=== PATIENT | female | born 1955 | race Caucasian/White ===

== ENCOUNTER 2020-07-03 21:45 | Emergency (ER) | payer MEDICARE ==
[2020-07-03 23:42] LABS: Absolute Neutrophil Ct (ANC) 2.26 (1.4-6.9); Hematocrit 39.9 % (35-47); Hemoglobin 13.4 gm/dl (12.0-16.0); Mean Cell Volume 89.1 fl (78-100); Mean Corpuscular Hemoglobin 29.9 pg (26-32); Mean Corpuscular Hgb Concent. 33.6 g/dl (32-36); Mean Platelet Volume 10.8 fl (7.5-11.0); Platelet Count 134 K/mm3 (150-450); Red Blood Count 4.48 M/mm3 (4.1-5.4); Red Cell Distribution Width 14.2 % (11.5-14.0); White Blood Count 3.8 K/mm3 (4.0-10.5)
--- NOTE | 2020-07-03 23:57 | ERPHSYRPT ---
- History of Present Illness Source: patient Patient Subjective Stated Complaint: cough, shortness of breath, hot flashes, chills, dizziness Triage Nursing Assessment: pt c/o cough, which at times causes shortness of breath, hot flashes, chills, dizziness, body aches and fatigue. Pt saw Dr. Rosie Foss 2 weeks ago, dx with bronchitis, had steroid shot and given cipro x5 days which she completed. Covid test done at that time and was negtive. Lungs clear. Physician History: 65 yo wf w nonproductive cough x3wks. Pt denies fever/coryza/ST/N/V/D/Chest pain. She gets mildly dyspnic when coughing. Pt has been treated w Cipro wo improvement. Timing/Duration: other (3 wks) Cough Quality/Degree: dry cough Possible Cause: occasional episodes Modifying Factors: Improves With: coughing Associated Symptoms: cough, No fever, No chills, No chest pain/soreness, No dizziness, No earache, No facial pain, No headache, No lightheadedness, No muscle aches, No nasal congestion, No nasal drainage, No shortness of breath, No sinus infection, No sore throat, No wheezing Allergies/Adverse Reactions: codeine Allergy (Severe, Verified 07/03/20 22:02) Anaphylactic Reaction Home Medications: Aspirin 81 gm Chew [Baby Aspirin 81 mg Chew] 81 mg PO DAILY 07/03/20 [History] Biotin 1,000 mcg PO DAILY 07/03/20 [History] Insulin Aspart Prot/Insuln Asp [Novolog Mix 70-30 Flexpen] 20 units SQ TID 07/03/20 [History] Levothyroxine Sodium 75 Mcg [Synthroid 75 Mcg] 75 mcg PO DAILY 07/03/20 [H istory] Magnesium 30 mg PO DAILY 07/03/20 [History] Hx Tetanus, Diphtheria Vaccination/Date Given: Yes Hx Influenza Vaccination/Date Given: Yes Hx Pneumococcal Vaccination/Date Given: No Immunizations Up to Date: Yes Travel Risk - International Travel Have you traveled outside of the country in past 3 weeks: No - Coronavirus Screening Are you exhibiting any of the following symptoms?: Yes Symptoms: Shortness of Breath, Headaches/Body Aches/Fatigue Close contact with a COVID-19 positive Pt in past 14-21 Days: No - Review of Systems Constitutional: No Symptoms Eyes: No Symptoms Ears, Nose, & Throat: No Symptoms Respiratory: No Symptoms, Cough Cardiac: No Symptoms Abdominal/Gastrointestinal: No Symptoms Genitourinary Symptoms: No Symptoms Musculoskeletal: No Symptoms Skin: No Symptoms Neurological: No Symptoms Psychological: No Symptoms Endocrine: No Symptoms Hematologic/Lymphatic: No Symptoms Immunological/Allergic: No Symptoms - Past Medical History Pertinent Past Medical History: Yes Neurological History: No Pertinent History ENT History: Cataracts Cardiac History: High Cholesterol Respiratory History: Bronchitis Endocrine Medical History: Diabetes Type II, Hypothyroidism Musculoskeletal History: No Pertinent History GI Medical History: Diverticulitis, Other History: No Pertinent History Psycho-Social History: No Pertinent History Female Reproductive Disorders: No Pertinent History Other Medical History: colon resection - Past Surgical History Past Surgical History: Yes Neuro Surgical History: No Pertinent History Cardiac: No Pertinent History Respiratory: No Pertinent History Gastrointestinal: Bowel Surgery Genitourinary: No Pertinent History Musculoskeletal: No Pertinent History Female Surgical History: Hysterectomy Other Surgical History: bowel resection - Social History Smoking Status: Never smoker Exposure to second hand smoke: No Drug Use: none Patient Lives Alone: No Significant Family History: no pertinent family hx - Female History Hx Now: No - Nursing Vital Signs Nursing Vital Signs: Initial Vital Signs Temperature 98.3 F 07/03/20 21:47 Pulse Rate 103 H 07/03/20 21:47 Respiratory Rate 20 07/03/20 21:47 Blood Pressure 181/112 07/03/20 21:47 Pain Scale Pain Intensity 0 - Physical Exam General Appearance: no apparent distress Eye Exam: PERRL/EOMI, eyes nml inspection Ears, Nose, Throat Exam: normal ENT inspection, TMs normal, pharynx normal, moist mucous membranes Neck Exam: normal inspection, non-tender, supple, No meningismus, No mass, No Brudzinski, No Kernig's Respiratory Exam: normal breath sounds, lungs clear, airway intact, No respiratory distress Cardiovascular Exam: regular rate/rhythm, normal heart sounds, normal peripheral pulses, No murmur Gastrointestinal/Abdomen Exam: soft, normal bowel sounds, No tenderness Back Exam: normal inspection, normal range of motion, No CVA tenderness Extremity Exam: normal inspection, normal range of motion Neurologic Exam: alert, oriented x 3, cooperative, cone runner II-XII nml as tested, normal mood/affect, nml cerebellar function, nml station & gait, sensation nml, No motor deficits, No sensory deficit Skin Exam: normal color Lymphatic Exam: No adenopathy SpO2 Interpretation: normal SpO2: 99 O2 Delivery: Room Air - Course Nursing assessment & vital signs reviewed: Yes - CT Exams Chest CT Interpretation: Tele-radiologist Report (CT chest neg) Ordered Tests: Active Orders 24 hr Category Date Time Status EKG-ER Only STAT Care 07/03/20 22:43 Completed CHEST WITHOUT CONTRAST [CT] Stat Exams 07/03/20 22:44 Taken CBC W DIFF Stat Lab 07/03/20 23:39 Completed CMP Stat Lab 07/03/20 23:39 Completed Lactic Acid Stat Lab 07/03/20 22:43 Completed Lactic Acid Stat Lab 07/04/20 01:08 Completed Manual Differential NC Stat Lab 07/03/20 23:39 Completed NT PRO BNP Stat Lab 07/03/20 23:39 Completed TROPONIN Q3H Lab 07/03/20 23:39 Completed TROPONIN Q3H Lab 07/04/20 01:10 Completed Medication Summary Discontinued Medications Generic Name Dose Route Start Last Admin Trade Name Freq PRN Reason Stop Dose Admin Benzonatate 200 mg 07/04/20 01:04 07/04/20 01:07 Tessalon Perles 100 Mg PO 07/04/20 01:05 200 mg ONCE STA Administration Benzonatate Confirm 07/04/20 01:05 Tessalon Perles 100 Mg Administered 07/04/20 01:06 Dose 200 mg PO .STK-MED ONE Sodium Chloride 1,000 mls @ 999 mls/hr 07/04/20 00:08 07/04/20 00:15 Sodium Chloride 0.9% 1000 Ml IV 07/04/20 01:08 999 mls/hr .Q1H1M STA Administration Sodium Chloride Confirm 07/04/20 00:12 Sodium Chloride 0.9% 1000 Ml Administered 07/04/20 00:13 Dose 1,000 mls @ ud .ROUTE .STK-MED ONE Lab/Rad Data: Laboratory Result Diagrams 07/03/20 23:39 07/03/20 23:39 Laboratory Results 07/04/20 07/04/20 07/03/20 Range/Units 01:10 01:08 23:39 WBC (4.0-10.5) K/mm3 RBC (4.1-5.4) M/mm3 Hgb (12.0-16.0) gm/dl Hct (35-47) % MCV (78-100) fl MCH (26-32) pg MCHC (32-36) g/dl RDW (11.5-14.0) % Plt Count (150-450) K/mm3 MPV (7.5-11.0) fl Absolute Granulocytes (1.4-6.9) Segmented Neutrophils (36.0-66.0) % Band Neutrophils (0.0-2.0) % Lymphocytes (Manual) (24-44) % Monocytes (Manual) (0.0-12.0) % Eosinophils (Manual) (0.00-3.0) % Atypical Lymphocytes % Platelet Estimate (NORMAL) RBC Morphology Sodium (137-145) mmol/L Potassium (3.5-5.1) mmol/L Chloride (98-107) mmol/L Carbon Dioxide (22-30) mmol/L Anion Gap (5-15) MEQ/L BUN (7-17) mg/dL Creatinine (0.52-1.04) mg/dL Estimated GFR ML/MIN Glucose (74-106) mg/dL Lactic Acid 1.4 (0.4-2.0) Calcium (8.4-10.2) mg/dL Total Bilirubin (0.2-1.3) mg/dL AST (14-36) U/L ALT (0-35) U/L Alkaline Phosphatase (38-126) U/L Troponin I < 0.012 < 0.012 (0.000-0.034) ng/mL NT-Pro-B Natriuret Pep (0-900) pg/mL Serum Total Protein (6.3-8.2) g/dL Albumin (3.5-5.0) g/dL 07/03/20 07/03/20 07/03/20 Range/Units 23:39 23:39 22:43 WBC 3.8 L (4.0-10.5) K/mm3 RBC 4.48 (4.1-5.4) M/mm3 Hgb 13.4 (12.0-16.0) gm/dl Hct 39.9 (35-47) % MCV 89.1 (78-100) fl MCH 29.9 (26-32) pg MCHC 33.6 (32-36) g/dl RDW 14.2 H (11.5-14.0) % Plt Count 134 L (150-450) K/mm3 MPV 10.8 (7.5-11.0) fl Absolute Granulocytes 2.26 (1.4-6.9) Segmented Neutrophils 57 (36.0-66.0) % Band Neutrophils 4 H (0.0-2.0) % Lymphocytes (Manual) 26 (24-44) % Monocytes (Manual) 9 (0.0-12.0) % Eosinophils (Manual) 2 (0.00-3.0) % Atypical Lymphocytes 2 % Platelet Estimate NORMAL (NORMAL) RBC Morphology NORMAL Sodium 136 L (137-145) mmol/L Potassium 4.3 (3.5-5.1) mmol/L Chloride 103 (98-107) mmol/L Carbon Dioxide 26 (22-30) mmol/L Anion Gap 12.3 (5-15) MEQ/L BUN 19 H (7-17) mg/dL Creatinine 0.74 (0.52-1.04) mg/dL Estimated GFR > 60.0 ML/MIN Glucose 258 H (74-106) mg/dL Lactic Acid 2.2 H (0.4-2.0) Calcium 9.7 (8.4-10.2) mg/dL Total Bilirubin 0.50 (0.2-1.3) mg/dL AST 24 (14-36) U/L ALT 22 (0-35) U/L Alkaline Phosphatase 104 (38-126) U/L Troponin I (0.000-0.034) ng/mL NT-Pro-B Natriuret Pep 82.5 (0-900) pg/mL Serum Total Protein 6.7 (6.3-8.2) g/dL Albumin 4.3 (3.5-5.0) g/dL - Progress Progress Note: 07/04/20 01:31 Pt given 1L NS bolus w normalization of Lactic acid Tessalon sekou given Counseled pt/family regarding: lab results, diagnosis, need for follow-up, rad results - Departure Departure Disposition: Home Clinical Impression: Bronchitis Condition: Stable Critical Care Time: No Referrals: MARK FOSS [Primary Care Provider] - Instructions: Cough, Adult (DC) Additional Instructions: Follow up with your family MD Start doxycycline Return to ER for worsening cough or increasing shortness of breath Prescriptions: Doxycycline Monohydrate 100 mg PO BID #20 tablet Benzonatate [Tessalon Perle] 100 mg PO TID PRN PRN #15 capsule PRN Reason: Cough
[2020-07-04 00:03] LABS: BLOOD UREA NITROGEN 19 mg/dL (7-17); Creatinine 1 0.74 mg/dL (0.52-1.04); EST GLOMERULAR FILTRATION RATE > 60.0 ML/MIN; Glucose 258 mg/dL (74-106)
[2020-07-04 00:04] LABS: ALBUMIN 4.3 g/dL (3.5-5.0); ALKALINE PHOSPHATASE 104 U/L (38-126); ANION GAP 12.3 MEQ/L (5-15); CHLORIDE 103 mmol/L (98-107); Calcium 9.7 mg/dL (8.4-10.2); Carbon Dioxide 26 mmol/L (22-30); NT PRO BNP 82.5 pg/mL (0-900); Potassium 4.3 mmol/L (3.5-5.1); SGOT/AST 24 U/L (14-36); SGPT/ALT 22 U/L (0-35); SODIUM 136 mmol/L (137-145); Total Protein 6.7 g/dL (6.3-8.2)
[2020-07-04] MEDS ORDERED: Sodium Chloride 0.9% 1000 ML 1,000 ML IV STA (00:08)
[2020-07-04] MEDS ORDERED: Sodium Chloride 0.9% 1000 ML 1,000 ML ONE (00:12)
[2020-07-04] MEDS ORDERED: Tessalon Perles 100 MG PO STA (01:04)
[2020-07-04] MEDS ORDERED: Tessalon Perles 100 MG PO ONE (01:05)
[2020-07-04 01:53] LABS: ATYPICAL LYMPHS 2 %; BAND 4 % (0.0-2.0); Eosinophil 2 % (0.00-3.0); Lymphocytes 26 % (24-44); Monocyte 9 % (0.0-12.0); Neutrophils 57 % (36.0-66.0); Platelet Estimate NORMAL (NORMAL); Total Cells Counted 100
[2020-07-04 02:09] VITALS: BP 137/88; PULSE 87
[2020-07-04 04:05] VITALS: O2SAT 99
--- NOTE | 2020-07-04 09:17 | XRAY ---
Indication: Cough 3 weeks. Multiple contiguous axial images obtained through the chest without contrast as ordered. Comparison: None Lungs inflated with small peripheral right upper lobe calcified granuloma. No suspicious pulmonary mass, infiltrate, consolidation, or effusion. Heart is not enlarged. Aorta is normal in course and caliber. Small mediastinal and right perihilar calcified nodes. No pathologic mediastinal lymphadenopathy. Bony thorax intact with mild degenerative changes throughout the spine. Limited upper abdomen demonstrates cholecystectomy and hepatic/splenic calcified granulomas. Impression: 1. Evidence for old granulomatous disease. 2. Remaining CT chest without contrast exam is negative. Comment: Preliminary interpretation was made by [facility]. No critical discrepancy.
== END 2020-07-04 02:09 | disposition home or self-care (01) ==
LOC: ED 21:45
DX: J40 Bronchitis, not specified as acute or chronic (principal)
CPT/HCPCS: 36000; 36415; 71250; 80053; 83605; 83880; 84484; 85025; 93005; 99284; U0003; A9270-GY

== ENCOUNTER 2020-07-11 12:32 | Observation (INO) | payer MEDICARE ==
--- NOTE | 2020-07-11 13:00 | ERPHSYRPT ---
- History of Present Illness Time Seen by Provider: 07/11/20 12:45 Source: patient, family Exam Limitations: no limitations Physician History: This is a 65-year-old white female, who first week in June 2020 was seen by her primary care physician Rosie Foss. At that time the patient underwent COVID-19 testing and per patient report the test was negative. Patient symptoms of cough, shortness of breath body aches persisted and on 07/03/2020 the patient was seen in this emergency department and diagnosed with bronchitis. A repeat COVID-19 test was performed. It was performed on 07/03/2020. On 07/07/2020 the patient was notified that her repeat COVID-19 test results was positive. Patient stayed home and quarantine herself. However her symptoms have persisted as described above. CAT scan of the chest with contrast was performed on 07/03/2020 and it was negative for any pulmonary emboli or pneumonia. Patient has a history of diabetes and hypothyroidism. She is here today because of her persistent symptoms as described above. Timing/Duration: day(s) (Couple of days), worse Cough Quality/Degree: mild, dry cough Possible Cause: occasional episodes Modifying Factors: Improves With: coughing Associated Symptoms: shortness of breath Allergies/Adverse Reactions: codeine Allergy (Severe, Verified 07/11/20 12:51) Anaphylactic Reaction Home Medications: Aspirin 81 gm Chew [Baby Aspirin 81 mg Chew] 81 mg PO DAILY 07/03/20 [History] Biotin 1,000 mcg PO DAILY 07/03/20 [History] Insulin Aspart Prot/Insuln Asp [Novolog Mix 70-30 Flexpen] 20 units SQ TID 07/03/20 [History] Levothyroxine Sodium 75 Mcg [Synthroid 75 Mcg] 75 mcg PO DAILY 07/03/20 [History] Magnesium 30 mg PO DAILY 07/03/20 [History] Hx Tetanus, Diphtheria Vaccination/Date Given: Yes Hx Influenza Vaccination/Date Given: Yes Hx Pneumococcal Vaccination/Date Given: No Travel Risk - International Travel Have you traveled outside of the country in past 3 weeks: No - Coronavirus Screening Are you exhibiting any of the following symptoms?: Yes Symptoms: Cough: New Onset, Shortness of Breath, Headaches/Body Aches/Fatigue Close contact with a COVID-19 positive Pt in past 14-21 Days: No - Review of Systems Constitutional: Malaise, Weakness Eyes: No Symptoms Ears, Nose, & Throat: No Symptoms Respiratory: Cough, Dyspnea Cardiac: No Symptoms Abdominal/Gastrointestinal: No Symptoms Genitourinary Symptoms: No Symptoms Musculoskeletal: Arthralgias, Myalgias Skin: No Symptoms Neurological: No Symptoms Psychological: No Symptoms Endocrine: No Symptoms Hematologic/Lymphatic: No Symptoms Immunological/Allergic: No Symptoms All Other Systems: Reviewed and Negative - Past Medical History Pertinent Past Medical History: Yes Neurological History: No Pertinent History ENT History: Cataracts Cardiac History: High Cholesterol Respiratory History: Bronchitis Endocrine Medical History: Diabetes Type II, Hypothyroidism Musculoskeletal History: No Pertinent History GI Medical History: Diverticulitis, Other History: No Pertinent History Psycho-Social History: No Pertinent History Female Reproductive Disorders: No Pertinent History Other Medical History: colon resection - Past Surgical History Past Surgical History: Yes Neuro Surgical History: No Pertinent History Cardiac: No Pertinent History Respiratory: No Pertinent History Gastrointestinal: Bowel Surgery Genitourinary: No Pertinent History Musculoskeletal: No Pertinent History Female Surgical History: Hysterectomy Other Surgical History: bowel resection - Social History Smoking Status: Never smoker Exposure to second hand smoke: No Drug Use: none Patient Lives Alone: No Significant Family History: no pertinent family hx - Nursing Vital Signs Nursing Vital Signs: Initial Vital Signs Temperature 99.0 F 07/11/20 13:09 Pulse Rate 118 H 07/11/20 13:09 Respiratory Rate 18 07/11/20 13:09 Blood Pressure 149/91 07/11/20 13:09 O2 Sat by Pulse Oximetry 95 07/11/20 13:09 Pain Scale Pain Intensity 8 - Physical Exam General Appearance: mild distress, alert, anxiety Eye Exam: PERRL/EOMI, eyes nml inspection Ears, Nose, Throat Exam: normal ENT inspection, moist mucous membranes Respiratory Exam: normal breath sounds, lungs clear, airway intact, No chest tenderness, No respiratory distress Cardiovascular Exam: regular rate/rhythm, normal heart sounds, normal peripheral pulses Gastrointestinal/Abdomen Exam: soft, normal bowel sounds, No tenderness Pelvic Exam: not done Rectal Exam: not done Back Exam: normal inspection, normal range of motion, No CVA tenderness, No vertebral tenderness Extremity Exam: normal inspection, normal range of motion, pelvis stable Neurologic Exam: alert, oriented x 3, cooperative, box nailer II-XII nml as tested, normal mood/affect, nml cerebellar function, nml station & gait, sensation nml Skin Exam: normal color, warm, dry Lymphatic Exam: No adenopathy SpO2 Interpretation: normal O2 Delivery: Room Air - Course Nursing assessment & vital signs reviewed: Yes Ordered Tests: Active Orders 24 hr Category Date Time Status Fighting Vehicle Infantryman STAT Care 07/11/20 12:44 Active Fighting Vehicle Infantryman STAT Care 07/11/20 12:45 Active EKG-ER Only STAT Care 07/11/20 12:41 Active IV Insertion STAT Care 07/11/20 12:41 Active IV Insertion-2nd Peripheral STAT Care 07/11/20 13:23 Active Isolation, Initiate & Maintain STAT Care 07/11/20 12:42 Active Pulse Oximetry (ED) ROUTINE Care 07/11/20 12:44 Active CHEST 1 VIEW (PORTABLE) Stat Exams 07/11/20 12:44 Completed BLOOD CULTURE Stat Lab 07/11/20 13:05 Received CBC W DIFF Stat Lab 07/11/20 13:05 Completed CMP Stat Lab 07/11/20 13:05 Completed D-DIMER QUANTITATIVE Stat Lab 07/11/20 14:10 Ordered Ferritin Stat Lab 07/11/20 13:05 Completed LDH-LACTATE DEHYDROGENASE Stat Lab 07/11/20 13:05 Completed Lactic Acid Stat Lab 07/11/20 12:44 Completed [place] Screen Stat Lab 07/11/20 13:05 Completed UA W/RFX UR CULTURE Stat Lab 07/11/20 13:09 Completed Transfer Order Routine Transfer 07/11/20 Ordered Medication Summary Generic Name Dose Route Start Last Admin Trade Name Freq PRN Reason Stop Dose Admin Sodium Chloride 1,000 mls @ 50 mls/hr 07/11/20 13:15 07/11/20 13:18 Sodium Chloride 0.9% 1000 Ml IV 08/10/20 13:14 50 mls/hr .Q20H ANNE Administration Discontinued Medications Generic Name Dose Route Start Last Admin Trade Name Freq PRN Reason Stop Dose Admin Benzonatate 200 mg 07/11/20 13:38 07/11/20 13:44 Tessalon Perles 100 Mg PO 07/11/20 13:39 200 mg STAT ONE Administration Benzonatate Confirm 07/11/20 13:43 Tessalon Perles 100 Mg Administered 07/11/20 13:44 Dose 200 mg PO .STK-MED ONE Methylprednisolone Sodium Succinate 125 mg 07/11/20 13:13 07/11/20 13:17 Solu-Medrol 125 Mg IV 07/11/20 13:14 125 mg STAT ONE Administration Methylprednisolone Sodium Succinate Confirm 07/11/20 13:13 Solu-Medrol 125 Mg Administered 07/11/20 13:14 Dose 125 mg .ROUTE .STK-MED ONE Lab/Rad Data: Laboratory Result Diagrams 07/11/20 13:05 07/11/20 13:05 Laboratory Results 07/11/20 07/11/20 07/11/20 Range/Units 13:10 13:09 13:05 WBC (4.0-10.5) K/mm3 RBC (4.1-5.4) M/mm3 Hgb (12.0-16.0) gm/dl Hct (35-47) % MCV (78-100) fl MCH (26-32) pg MCHC (32-36) g/dl RDW (11.5-14.0) % Plt Count (150-450) K/mm3 MPV (7.5-11.0) fl Gran % (36.0-66.0) % Eos # (Auto) (0-0.5) Absolute Lymphs (auto) (1.0-4.6) Absolute Monos (auto) (0.0-1.3) Lymphocytes % (24.0-44.0) % Monocytes % (0.0-12.0) % Eosinophils % (0.00-5.0) % Basophils % (0.0-0.4) % Absolute Granulocytes (1.4-6.9) Basophils # (0-0.4) Sodium (137-145) mmol/L Potassium (3.5-5.1) mmol/L Chloride (98-107) mmol/L Carbon Dioxide (22-30) mmol/L Anion Gap (5-15) MEQ/L BUN (7-17) mg/dL Creatinine (0.52-1.04) mg/dL Estimated GFR ML/MIN Glucose (74-106) mg/dL Lactic Acid (0.4-2.0) Calcium (8.4-10.2) mg/dL Ferritin (11.1-264) ng/mL Total Bilirubin (0.2-1.3) mg/dL AST (14-36) U/L ALT (0-35) U/L Alkaline Phosphatase (38-126) U/L Lactate Dehydrogenase (120-246) U/L Serum Total Protein (6.3-8.2) g/dL Albumin (3.5-5.0) g/dL Urine Color OZZIE (YELLOW) Urine Appearance CLOUDY (CLEAR) Urine pH 5.0 (5-6) Ur Specific [place] 1.032 (1.005-1.025) Urine Protein 100 (Negative) Urine Ketones TRACE (NEGATIVE) Urine Blood NEGATIVE (0-5) Juan Ramon/ul Urine Nitrite NEGATIVE (NEGATIVE) Urine Bilirubin NEGATIVE (NEGATIVE) Urine Urobilinogen NEGATIVE (0-1) mg/dL Ur Leukocyte Esterase NEGATIVE (NEGATIVE) Urine WBC (Auto) 3-5 (0-5) /HPF Urine RBC (Auto) 3-5 (0-2) /HPF U Epithel Cells (Auto) RARE (FEW) /HPF Urine Bacteria (Auto) RARE (NEGATIVE) /HPF Urine Mucus (Auto) MODERATE (NEGATIVE) /HPF Urine Culture Reflexed NO (NO) Urine Glucose 50 (NEGATIVE) mg/dL Monoscreen NEGATIVE (Negative) Influenza Type A Ag NEGATIVE (NEGATIVE) Influenza Type B Ag NEGATIVE (NEGATIVE) RSV (PCR) NEGATIVE (Negative) Group A Strep Antibody NOT DETECTED (NEGATIVE) 07/11/20 07/11/20 07/11/20 Range/Units 13:05 13:05 13:05 WBC 3.1 L (4.0-10.5) K/mm3 RBC 5.02 (4.1-5.4) M/mm3 Hgb 14.8 (12.0-16.0) gm/dl Hct 44.4 (35-47) % MCV 88.4 (78-100) fl MCH 29.5 (26-32) pg MCHC 33.3 (32-36) g/dl RDW 14.7 H (11.5-14.0) % Plt Count 120 L (150-450) K/mm3 MPV 10.4 (7.5-11.0) fl Gran % 55.7 (36.0-66.0) % Eos # (Auto) 0.03 (0-0.5) Absolute Lymphs (auto) 1.04 (1.0-4.6) Absolute Monos (auto) 0.30 (0.0-1.3) Lymphocytes % 33.4 (24.0-44.0) % Monocytes % 9.6 (0.0-12.0) % Eosinophils % 1.0 (0.00-5.0) % Basophils % 0.3 (0.0-0.4) % Absolute Granulocytes 1.73 (1.4-6.9) Basophils # 0.01 (0-0.4) Sodium 135 L (137-145) mmol/L Potassium 3.9 (3.5-5.1) mmol/L Chloride 101 (98-107) mmol/L Carbon Dioxide 24 (22-30) mmol/L Anion Gap 14.1 (5-15) MEQ/L BUN 15 (7-17) mg/dL Creatinine 0.83 (0.52-1.04) mg/dL Estimated GFR > 60.0 ML/MIN Glucose 315 H (74-106) mg/dL Lactic Acid (0.4-2.0) Calcium 9.1 (8.4-10.2) mg/dL Ferritin 192 (11.1-264) ng/mL Total Bilirubin 0.60 (0.2-1.3) mg/dL AST 23 (14-36) U/L ALT 17 (0-35) U/L Alkaline Phosphatase 101 (38-126) U/L Lactate Dehydrogenase 188 (120-246) U/L Serum Total Protein 7.0 (6.3-8.2) g/dL Albumin 4.2 (3.5-5.0) g/dL Urine Color (YELLOW) Urine Appearance (CLEAR) Urine pH (5-6) Ur Specific [place] (1.005-1.025) Urine Protein (Negative) Urine Ketones (NEGATIVE) Urine Blood (0-5) Juan Ramon/ul Urine Nitrite (NEGATIVE) Urine Bilirubin (NEGATIVE) Urine Urobilinogen (0-1) mg/dL Ur Leukocyte Esterase (NEGATIVE) Urine WBC (Auto) (0-5) /HPF Urine RBC (Auto) (0-2) /HPF U Epithel Cells (Auto) (FEW) /HPF Urine Bacteria (Auto) (NEGATIVE) /HPF Urine Mucus (Auto) (NEGATIVE) /HPF Urine Culture Reflexed (NO) Urine Glucose (NEGATIVE) mg/dL Monoscreen (Negative) Influenza Type A Ag (NEGATIVE) Influenza Type B Ag (NEGATIVE) RSV (PCR) (Negative) Group A Strep Antibody (NEGATIVE) 07/11/20 Range/Units 12:44 WBC (4.0-10.5) K/mm3 RBC (4.1-5.4) M/mm3 Hgb (12.0-16.0) gm/dl Hct (35-47) % MCV (78-100) fl MCH (26-32) pg MCHC (32-36) g/dl RDW (11.5-14.0) % Plt Count (150-450) K/mm3 MPV (7.5-11.0) fl Gran % (36.0-66.0) % Eos # (Auto) (0-0.5) Absolute Lymphs (auto) (1.0-4.6) Absolute Monos (auto) (0.0-1.3) Lymphocytes % (24.0-44.0) % Monocytes % (0.0-12.0) % Eosinophils % (0.00-5.0) % Basophils % (0.0-0.4) % Absolute Granulocytes (1.4-6.9) Basophils # (0-0.4) Sodium (137-145) mmol/L Potassium (3.5-5.1) mmol/L Chloride (98-107) mmol/L Carbon Dioxide (22-30) mmol/L Anion Gap (5-15) MEQ/L BUN (7-17) mg/dL Creatinine (0.52-1.04) mg/dL Estimated GFR ML/MIN Glucose (74-106) mg/dL Lactic Acid 1.7 (0.4-2.0) Calcium (8.4-10.2) mg/dL Ferritin (11.1-264) ng/mL Total Bilirubin (0.2-1.3) mg/dL AST (14-36) U/L ALT (0-35) U/L Alkaline Phosphatase (38-126) U/L Lactate Dehydrogenase (120-246) U/L Serum Total Protein (6.3-8.2) g/dL Albumin (3.5-5.0) g/dL Urine Color (YELLOW) Urine Appearance (CLEAR) Urine pH (5-6) Ur Specific [place] (1.005-1.025) Urine Protein (Negative) Urine Ketones (NEGATIVE) Urine Blood (0-5) Juan Ramon/ul Urine Nitrite (NEGATIVE) Urine Bilirubin (NEGATIVE) Urine Urobilinogen (0-1) mg/dL Ur Leukocyte Esterase (NEGATIVE) Urine WBC (Auto) (0-5) /HPF Urine RBC (Auto) (0-2) /HPF U Epithel Cells (Auto) (FEW) /HPF Urine Bacteria (Auto) (NEGATIVE) /HPF Urine Mucus (Auto) (NEGATIVE) /HPF Urine Culture Reflexed (NO) Urine Glucose (NEGATIVE) mg/dL Monoscreen (Negative) Influenza Type A Ag (NEGATIVE) Influenza Type B Ag (NEGATIVE) RSV (PCR) (Negative) Group A Strep Antibody (NEGATIVE) - Progress Progress: improved, re-examined Air Movement: good Progress Note: 07/11/20 14:10 Chest x-ray shows no acute cardiopulmonary process. Medical decision making: This patient can benefit from being placed in observation in the hospital. I discussed this with Dr. Rogers, who is the hospitalist on for COVID-19 unit. I reviewed the patient history, condition and laboratory results. He agrees. He states that he wants the patient to receive dexamethasone, low rate IV fluids, remdesivir, and to have a D-dimer drawn. The D-dimer is not to rule out a pulmonary embolism but for following disease severity. The patient had a CAT scan of the chest with contrast approximately 1 week ago. He also wants the patient anticoagulated. Discussed with : Other (Trey Rogers) Will see patient in: hospital (observation) Counseled pt/family regarding: lab results, diagnosis, rad results - Departure Departure Disposition: Observation Clinical Impression: COVID-19, Bronchitis, Weakness Condition: Stable Critical Care Time: Yes Critical Care Time(excluding separately billable procedures): Critical 30-74 mins Referrals: MARK FOSS [Primary Care Provider] -
[2020-07-11] MEDS ORDERED: solu-MEDROL 125 MG IV ONE (13:13)
[2020-07-11] MEDS ORDERED: solu-MEDROL 125 MG ONE (13:13)
[2020-07-11] MEDS ORDERED: Sodium Chloride 0.9% 1000 ML 1,000 ML IV SCH (13:15)
[2020-07-11 13:22] LABS: Absolute Neutrophil Ct (ANC) 1.73 (1.4-6.9); BASOPHIL % 0.3 % (0.0-0.4); Basophil (Absolute #) 0.01 (0-0.4); Eosinophil (Absolute #) 0.03 (0-0.5); Hematocrit 44.4 % (35-47); Hemoglobin 14.8 gm/dl (12.0-16.0); Lymphocyte (Absolute #) 1.04 (1.0-4.6); Lymphocytes % 33.4 % (24.0-44.0); Mean Cell Volume 88.4 fl (78-100); Mean Corpuscular Hemoglobin 29.5 pg (26-32); Mean Corpuscular Hgb Concent. 33.3 g/dl (32-36); Mean Platelet Volume 10.4 fl (7.5-11.0); Monocytes % 9.6 % (0.0-12.0); Neutrophil % 55.7 % (36.0-66.0); Platelet Count 120 K/mm3 (150-450); Red Blood Count 5.02 M/mm3 (4.1-5.4); Red Cell Distribution Width 14.7 % (11.5-14.0); White Blood Count 3.1 K/mm3 (4.0-10.5)
[2020-07-11 13:26] LABS: Appearance CLOUDY (CLEAR); Bacteria RARE /HPF (NEGATIVE); Bilirubin NEGATIVE (NEGATIVE); Blood NEGATIVE Ery/ul (0-5); Epithelial Cells RARE /HPF (FEW); Glucose 50 mg/dL (NEGATIVE); Ketones TRACE (NEGATIVE); Leukocyte Esterase NEGATIVE (NEGATIVE); Mucus MODERATE /HPF (NEGATIVE); Nitrite NEGATIVE (NEGATIVE); Protein,Urine Dip 100 (Negative); Specific Gravity 1.032 (1.005-1.025); Urobilinogen NEGATIVE mg/dL (0-1)
[2020-07-11 13:37] LABS: ALBUMIN 4.2 g/dL (3.5-5.0); ALKALINE PHOSPHATASE 101 U/L (38-126); ANION GAP 14.1 MEQ/L (5-15); BLOOD UREA NITROGEN 15 mg/dL (7-17); CHLORIDE 101 mmol/L (98-107); Calcium 9.1 mg/dL (8.4-10.2); Carbon Dioxide 24 mmol/L (22-30); Creatinine 1 0.83 mg/dL (0.52-1.04); EST GLOMERULAR FILTRATION RATE > 60.0 ML/MIN; Glucose 315 mg/dL (74-106); LDH-LACTATE DEHYDROGENASE 188 U/L (120-246); Potassium 3.9 mmol/L (3.5-5.1); SGOT/AST 23 U/L (14-36); SGPT/ALT 17 U/L (0-35); SODIUM 135 mmol/L (137-145)
[2020-07-11] MEDS ORDERED: Tessalon Perles 100 MG PO ONE ×2 (13:38→13:43)
--- NOTE | 2020-07-11 13:40 | XRAY ---
Indication: Cough and congestion. Suspect Covid 19. Comparison: CT chest July 03, 2020. Portable chest again demonstrates normal heart and lungs with incidental mediastinal/right lung calcified granulomas. Bony thorax intact.
[2020-07-11 13:51] LABS: Group A Strep NOT DETECTED (NEGATIVE)
[2020-07-11 13:56] LABS: INFLUENZA A NEGATIVE (NEGATIVE); INFLUENZA B NEGATIVE (NEGATIVE); RESPIRATORY SYNCTIAL VIRUS NEGATIVE (Negative)
[2020-07-11] MEDS ORDERED: REMDESIVIR 200 MG in Sodium Chloride 0.9% 250 ML 250 ML IV ONE (15:17)
[2020-07-11] MEDS ORDERED: REMDESIVIR 200 MG in Sodium Chloride 0.9% 250 ML 250 ML IV SCH (16:00)
[2020-07-11] MEDS: HUMULIN R SQ PRN ×2 (17:19→21:53)
[2020-07-11] MEDS ORDERED: MEDICATION INTERVENTION MC SCH ×2 (17:30)
[2020-07-11] MEDS ORDERED: Ativan 1 MG PO PRN (20:34)
[2020-07-11] MEDS: Zocor 10MG PO SCH (21:52)
[2020-07-11] MEDS: Tessalon Perles 100 MG PO PRN (21:52)
[2020-07-11] MEDS: ENOXAPARIN SODIUM SQ SCH (21:52)
[2020-07-11] MEDS: Decadron 4 MG INJ IV SCH (21:52)
[2020-07-11] MEDS: Sodium Chloride 0.9% 1000 ML 1,000 ML IV SCH (21:54)
[2020-07-11] MEDS ORDERED: INSULN ASP SQ SCH (22:00)
[2020-07-11] MEDS ORDERED: INSULIN ASPART PROT SQ SCH (22:00)
[2020-07-11] MEDS ORDERED: [UNRECOGNIZED DRUG - OTHER] SQ SCH (22:00)
[2020-07-12] MEDS: Zocor 10MG PO SCH ×2 (04:13→09:04)
[2020-07-12 05:54] LABS: Absolute Neutrophil Ct (ANC) 1.89 (1.4-6.9); BASOPHIL % 0.4 % (0.0-0.4); Basophil (Absolute #) 0.01 (0-0.4); Eosinophil (Absolute #) 0 (0-0.5); Hematocrit 42.3 % (35-47); Hemoglobin 13.9 gm/dl (12.0-16.0); Lymphocyte (Absolute #) 0.61 (1.0-4.6); Lymphocytes % 23.4 % (24.0-44.0); Mean Cell Volume 89.4 fl (78-100); Mean Corpuscular Hemoglobin 29.4 pg (26-32); Mean Corpuscular Hgb Concent. 32.9 g/dl (32-36); Mean Platelet Volume 9.8 fl (7.5-11.0); Monocytes % 3.8 % (0.0-12.0); Neutrophil % 72.4 % (36.0-66.0); Platelet Count 124 K/mm3 (150-450); Red Blood Count 4.73 M/mm3 (4.1-5.4); Red Cell Distribution Width 14.4 % (11.5-14.0); White Blood Count 2.6 K/mm3 (4.0-10.5)
[2020-07-12] MEDS: SYNTHROID 75 MCG PO SCH ×2 (05:54→09:06)
[2020-07-12 06:11] LABS: ALBUMIN 3.9 g/dL (3.5-5.0); ALKALINE PHOSPHATASE 87 U/L (38-126); ANION GAP 11.5 MEQ/L (5-15); BLOOD UREA NITROGEN 21 mg/dL (7-17); CHLORIDE 106 mmol/L (98-107); Calcium 9.3 mg/dL (8.4-10.2); Carbon Dioxide 25 mmol/L (22-30); Creatinine 1 0.85 mg/dL (0.52-1.04); EST GLOMERULAR FILTRATION RATE > 60.0 ML/MIN; Glucose 326 mg/dL (74-106); Potassium 4.3 mmol/L (3.5-5.1); SGOT/AST 22 U/L (14-36); SGPT/ALT 20 U/L (0-35); SODIUM 138 mmol/L (137-145); Total Protein 6.7 g/dL (6.3-8.2)
[2020-07-12] MEDS: Sodium Chloride 0.9% 1000 ML 1,000 ML IV SCH (07:20)
[2020-07-12] MEDS: HUMALOG MIX 75-25 VIAL SQ SCH ×3 (08:10→17:11)
[2020-07-12] MEDS: HUMULIN R SQ PRN ×4 (08:11→22:14)
[2020-07-12] MEDS: ECOTRIN 81 MG PO SCH (09:04)
[2020-07-12] MEDS: Decadron 4 MG INJ IV SCH ×2 (09:05→22:13)
[2020-07-12] MEDS: ENOXAPARIN SODIUM SQ SCH (09:05)
[2020-07-12] MEDS: Tessalon Perles 100 MG PO PRN ×2 (09:05→22:13)
[2020-07-12] MEDS: Zofran 4 MG/2 ML VIAL IV PRN ×2 (09:15→17:10)
[2020-07-12] MEDS ORDERED: BABY ASPIRIN 81 MG CHEW PO SCH (10:00)
[2020-07-12] MEDS ORDERED: MAGNESIUM 30 MG PO SCH (10:00)
[2020-07-12] MEDS ORDERED: NON-FORMULARY ITEM (Lovastatin [Lovastatin] 10 MG) PO SCH (10:00)
[2020-07-12] MEDS ORDERED: SYNTHROID 75 MCG PO SCH (10:00)
[2020-07-12] MEDS ORDERED: BIOTIN 1000 MCG PO SCH (10:00)
[2020-07-12] MEDS: Pepcid 20 MG PO SCH (10:32)
[2020-07-12] MEDS ORDERED: Ativan 2 MG/1 ML VIAL IV ONE (13:36)
[2020-07-12] MEDS: REMDESIVIR 100 MG in Sodium Chloride 0.9% 100 ML IVPB 100 ML IV SCH (15:08)
[2020-07-12] MEDS ORDERED: HUMALOG MIX 75-25 VIAL SQ SCH (17:30)
[2020-07-12] MEDS: TYLENOL 325 MG PO PRN (20:07)
[2020-07-12] MEDS ORDERED: Phenergan 25 MG INJ IM PRN (20:20)
[2020-07-13] MEDS: Sodium Chloride 0.9% 1000 ML 1,000 ML IV SCH (03:22)
[2020-07-13 06:00] LABS: Absolute Neutrophil Ct (ANC) 4.42 (1.4-6.9); Basophil (Absolute #) 0 (0-0.4); Eosinophil (Absolute #) 0 (0-0.5); Hematocrit 39.7 % (35-47); Hemoglobin 12.9 gm/dl (12.0-16.0); Lymphocyte (Absolute #) 0.65 (1.0-4.6); Lymphocytes % 12.2 % (24.0-44.0); Mean Cell Volume 89.6 fl (78-100); Mean Corpuscular Hemoglobin 29.1 pg (26-32); Mean Corpuscular Hgb Concent. 32.5 g/dl (32-36); Mean Platelet Volume 10.6 fl (7.5-11.0); Monocyte (Absolute #) 0.27 (0.0-1.3); Monocytes % 5.1 % (0.0-12.0); Neutrophil % 82.7 % (36.0-66.0); Platelet Count 140 K/mm3 (150-450); Red Blood Count 4.43 M/mm3 (4.1-5.4); Red Cell Distribution Width 14.2 % (11.5-14.0); White Blood Count 5.3 K/mm3 (4.0-10.5)
[2020-07-13 06:18] LABS: ALBUMIN 3.3 g/dL (3.5-5.0); ALKALINE PHOSPHATASE 70 U/L (38-126); ANION GAP 9.5 MEQ/L (5-15); BLOOD UREA NITROGEN 24 mg/dL (7-17); CHLORIDE 109 mmol/L (98-107); Calcium 8.8 mg/dL (8.4-10.2); Carbon Dioxide 26 mmol/L (22-30); Creatinine 1 0.81 mg/dL (0.52-1.04); EST GLOMERULAR FILTRATION RATE > 60.0 ML/MIN; Glucose 261 mg/dL (74-106); SGOT/AST 19 U/L (14-36); SGPT/ALT 16 U/L (0-35); SODIUM 139 mmol/L (137-145); Total Protein 5.9 g/dL (6.3-8.2)
[2020-07-13] MEDS: HUMALOG MIX 75-25 VIAL SQ SCH ×3 (08:16→17:44)
[2020-07-13] MEDS: HUMULIN R SQ PRN ×4 (08:17→22:06)
[2020-07-13] MEDS: Decadron 4 MG INJ IV SCH ×2 (09:46→22:06)
[2020-07-13] MEDS: ECOTRIN 81 MG PO SCH (09:46)
[2020-07-13] MEDS: Pepcid 20 MG PO SCH (09:46)
[2020-07-13] MEDS: SYNTHROID 75 MCG PO SCH (09:46)
[2020-07-13] MEDS: Zocor 10MG PO SCH (09:46)
[2020-07-13] MEDS: ENOXAPARIN SODIUM SQ SCH (09:47)
[2020-07-13] MEDS: REMDESIVIR 100 MG in Sodium Chloride 0.9% 100 ML IVPB 100 ML IV SCH (14:56)
[2020-07-13] MEDS: TYLENOL 325 MG PO PRN (19:30)
[2020-07-13] MEDS: Tessalon Perles 100 MG PO PRN (22:25)
[2020-07-14] MEDS: Sodium Chloride 0.9% 1000 ML 1,000 ML IV SCH (04:27)
[2020-07-14] MEDS: HUMALOG MIX 75-25 VIAL SQ SCH ×2 (08:25→12:14)
[2020-07-14] MEDS: HUMULIN R SQ PRN ×2 (08:26→12:15)
[2020-07-14] MEDS: ECOTRIN 81 MG PO SCH (10:00)
[2020-07-14] MEDS: ENOXAPARIN SODIUM SQ SCH (10:00)
[2020-07-14] MEDS: Pepcid 20 MG PO SCH (10:00)
[2020-07-14] MEDS: Zocor 10MG PO SCH (10:01)
[2020-07-14] MEDS: Decadron 4 MG INJ IV SCH (10:01)
[2020-07-14] MEDS: SYNTHROID 75 MCG PO SCH (10:02)
[2020-07-14] MEDS: REMDESIVIR 100 MG in Sodium Chloride 0.9% 100 ML IVPB 100 ML IV SCH (11:40)
[2020-07-14 12:22] VITALS: BP 136/67; PULSE 72; O2SAT 95
--- NOTE | 2020-07-14 13:03 | HP ---
CHIEF COMPLAINT: Shortness of breath, cough, abdominal pain, myalgia all over, nausea. HISTORY OF PRESENT ILLNESS: The patient was actually diagnosed with COVID the first week of June by Dr. Rosie Smallwood. She was treated at home. She went several times to the emergency room and sent home. Her daughter had COVID and was admitted here for two days. She was not getting better. She has diabetes and hypothyroidism which in the past controlled although her A1C was elevated to 8 here. Because of the distress, shortness of breath, chest discomfort, headaches, aches and fatigue nonresolving, she is being admitted for more intense treatment of COVID. COVID test was positive on 07/03/2020. She had self-quarantined until being seen at the emergency room. CT and chest x-ray done was negative for pulmonary emboli and pneumonia. MEDICATIONS: Aspirin 81 mg q.d., Biotin 1,000 mcg q.d., NovoLog 70/30 - 20 units t.i.d., levothyroxine 75 q.d., magnesium 30 q.d. ALLERGIES: SEVERE REACTION TO CODEINE. TRAVEL RISK: None. EXPOSURE: To family members who have had it. SOCIAL HISTORY: She is retired, does not smoke. Several kids, . REVIEW OF SYSTEMS: CONSTITUTIONAL: Extreme weakness, aching all over. HEENT: Dry cough nonstop. CARDIAC: No chest pain, shortness of breath. No history of myocardial infarctions. ABDOMEN: She had some nausea, diffuse aching all over. Off and on with some nausea. MUSCULOSKELETAL: Arthralgia. No specific arthritis. ENDOCRINE: Hypothyroidism. PSYCHIATRIC: No history of psychiatric illnesses. PAST MEDICAL HISTORY: High cholesterol. Cataracts which were surgically treated. PAST SURGICAL HISTORY: The patient did have colon resection for diverticulitis years ago. Gallbladder surgery. PHYSICAL EXAMINATION: The patient is alert, orientated, younger than normal 66 year old white female who was in some mild distress on admission. VITAL SIGNS: Temperature 99F, pulse 118, respiratory rate 18, blood pressure 150/90. O2 saturation 95%. Pain intensity was 8. HEENT: Pupils equal and reactive to light. NECK: Supple without adenopathy. CHEST: Few crackles on the right side. CVS: No murmurs or gallops. No tachycardia. ABDOMEN: Soft, some tenderness over the bladder. EXTREMITIES: Normal. IMPRESSION: The patient has unresolving COVID over ten days with both GI and pulmonary problems. PLAN: She will be treated with IV steroids, Tessalon Perle, aspirin, oxygen, medicines for nausea. PROGNOSIS: [place] to be good.
== END 2020-07-14 13:15 | disposition home or self-care (01) ==
LOC: ED 12:32 → MED SURG 14:52
PROVIDERS: ADMIT Family Medicine; ATTEND Family Medicine
DX: U07.1 COVID-19 (principal); J40 Bronchitis, not specified as acute or chronic; R53.1 Weakness; E11.9 Type 2 diabetes mellitus without complications; E03.9 Hypothyroidism, unspecified; E78.00 Pure hypercholesterolemia, unspecified; Z79.899 Other long term (current) drug therapy; R51.9 Headache, unspecified; R53.83 Other fatigue
CPT/HCPCS: 36415; 80053; 81001; 82728; 82947; 83036; 83605; 83615; 85025; 85379; 86308; 87040; 87631; 87651; 93005; 93041; 93268; 94762; 96360; 96374; 99291; G0378; U0003; 36000; 71045; 94760; 99285; J1100; J1650; J1815; J2060; J2405; J2550; J2930; A9270-GY